=== PATIENT | male | born 1985 | race Hispanic/Latino ===

== ENCOUNTER 2024-03-10 06:29 | Day surgery (SDC) | payer OTHER ==
[2024-03-05 10:56] LABS: BASOPHILS # (AUTO) 0.04 K/uL (0.00-0.20); BASOPHILS % (AUTO) 0.5 % (0.0-5.0); EOSINOPHILS # (AUTO) 0.09 K/uL (0.00-0.70); HEMATOCRIT 41.8 % (42-54); IMMATURE GRANULOCYTE ABSOLUTE 0.02 K/uL (0-1); LYMPHOCYTES # (AUTO) 2.1 K/uL (1.0-4.8); LYMPHOCYTES % (AUTO) 23.2 % (21.0-51.0); MEAN CORPUSCULAR HEMOGLOBIN 29.9 pg (27.0-33.0); MEAN CORPUSCULAR HGB CONC 32.3 g/dL (32.0-36.0); MEAN CORPUSCULAR VOLUME 92.7 fL (79-99); MONOCYTES # (AUTO) 0.5 K/uL (0.1-1.0); MONOCYTES % (AUTO) 5.1 % (3.0-13.0); NEUTROPHILS # (AUTO) 6.2 K/uL (1.8-7.7); PLATELET COUNT (AUTO) 195 K/uL (130-400); RED BLOOD CELL COUNT(AUTO) 4.51 MIL/uL (4.50-6.20); RED CELL DISTRIBUTION WIDTH 13.4 % (11.0-15.5); WHITE BLOOD COUNT (AUTO) 8.9 K/uL (4.8-10.8)
[2024-03-05 10:58] VITALS: BP 179/84; PULSE 78; RESP 18
[2024-03-05 10:58] LABS: CREATININE 0.6 mg/dL (0.5-1.3); POTASSIUM 3.8 mmol/L (3.5-5.1)
[~2024-03-10] VITALS: Ht 168.9 cm; Wt 155.0 kg
[2024-03-10] VITALS (17 sets, daily range): BP systolic 111–145; BP diastolic 54–86; PULSE 62–79; RESP 15–19
[~2024-03-10 06:29] MED LIST: ERGO500093 PO; HYDR12.54 PO; LISI40TA9 PO; METF-444 PO; MVIT PO
[2024-03-10] MEDS ORDERED: BUPIVACAINE/PF 0.25% 30ML VIAL IJ ONE (07:28)
[2024-03-10] MEDS: CEFAZOLIN SODIUM 2 GM VIAL IVPB ONE ×2 (07:30→08:30)
[2024-03-10] MEDS: METRONIDAZOLE 500MG/100ML BAG 200 ML ONE (07:40)
[2024-03-10] MEDS: CEFAZOLIN SODIUM 2 GM VIAL ONE (07:40)
[2024-03-10] MEDS: 0.9%NACL 1000ML 1,000 ML IV ONE (07:41)
[2024-03-10] MEDS ORDERED: LIDOCAINE PF 100MG/5ML (2%) SYRINGE 5ML ONE (08:13)
[2024-03-10] MEDS ORDERED: SUCCINYLCHOLINE CHLORIDE 20 MG/ML 10 ML VIAL ONE (08:13)
[2024-03-10] MEDS ORDERED: ROCURONIUM BROMIDE 10MG/1ML 5ML VL ONE ×2 (08:14→09:03)
[2024-03-10] MEDS ORDERED: MIDAZOLAM HCL 1 MG/ML 2ML VIAL ONE (08:14)
[2024-03-10] MEDS ORDERED: PROPOFOL 10 MG/ML 20ML VIAL IV ONE ×2 (08:14→09:49)
[2024-03-10] MEDS ORDERED: FENTANYL CITRATE PF 50 MCG/1 ML 2ML VIAL ONE (08:14)
[2024-03-10] MEDS ORDERED: LIDOCAINE 1%-EPI 1:100,000 20 ML VIAL ONE (08:37)
[2024-03-10] MEDS ORDERED: GLYCOPYRROLATE 0.2 MG/ML 5 ML VIAL ONE (10:14)
[2024-03-10] MEDS ORDERED: NEOSTIGMINE METHYLSULFATE 1MG/ML IV ONE (10:22)
[2024-03-10] MEDS: MEPERIDINE-PF 25 MG/ML SYG ONE ×2 (10:51→11:01)
[2024-03-10] MEDS ORDERED: IOHEXOL-350 50ML VIAL IV ONE (11:40)
[2024-03-10] MEDS ORDERED: CEFAZOLIN SODIUM 1 GM VIAL ONE (17:59)
== END 2024-03-10 12:20 | disposition home or self-care (01) ==
LOC: DAH 06:29
PROVIDERS: ATTEND Surgery
DX: K80.12 Calculus of gallbladder with acute and chronic cholecystitis without obstruction (principal); I10 Essential (primary) hypertension; E78.5 Hyperlipidemia, unspecified; E11.9 Type 2 diabetes mellitus without complications; K43.9 Ventral hernia without obstruction or gangrene; R10.13 Epigastric pain; R93.2 Abnormal findings on diagnostic imaging of liver and biliary tract; F17.210 Nicotine dependence, cigarettes, uncomplicated; E66.01 Morbid (severe) obesity due to excess calories; Z68.43 Body mass index [BMI] 50.0-59.9, adult; Z82.49 Family history of ischemic heart disease and other diseases of the circulatory system; Z83.3 Family history of diabetes mellitus; Z79.84 Long term (current) use of oral hypoglycemic drugs; Z79.899 Other long term (current) drug therapy
CPT/HCPCS: 80048; 85025; 86850 ×2; 86900 ×2; 86901 ×2; 36415 ×2; 93005; 47563; 82948 ×2; 88304; 48400; A6260; A4600; A4663; J7030 ×2; A4215 ×2; C1758; J3010; J0690 ×3; J0330; J0665; J3490 ×4; J2001; J2250; J2704 ×2; J2710; J2175 ×2; Q9967; C1769 ×3; G0168; A4649 ×2; A4930; A4223; A4222; A4221

== ENCOUNTER 2024-05-27 06:22 | Day surgery (SDC) | payer OTHER ==
[~2024-05-27] VITALS: Ht 167.6 cm; Wt 145.1 kg
[2024-05-27] VITALS (10 sets, daily range): BP systolic 111–127; BP diastolic 58–79; PULSE 57–69; RESP 15–18
[~2024-05-27 06:22] MED LIST changes: -ERGO500093 PO; -MVIT PO; +OZEMPIC SQ
[2024-05-27] MEDS: 0.9%NACL 1000ML 1,000 ML IV ONE (07:05)
[2024-05-27] MEDS ORDERED: PROPOFOL 10 MG/ML 20ML VIAL IV ONE ×2 (08:45)
== END 2024-05-27 10:07 | disposition home or self-care (01) ==
LOC: DAH 06:22 → ENDO 06:22
PROVIDERS: ATTEND Internal Medicine Gastroenterology
DX: R14.0 Abdominal distension (gaseous) (principal); K29.70 Gastritis, unspecified, without bleeding; B96.81 Helicobacter pylori [H. pylori] as the cause of diseases classified elsewhere; K22.89 Other specified disease of esophagus; K43.9 Ventral hernia without obstruction or gangrene; K31.89 Other diseases of stomach and duodenum; K80.20 Calculus of gallbladder without cholecystitis without obstruction; I10 Essential (primary) hypertension; E11.9 Type 2 diabetes mellitus without complications; E66.01 Morbid (severe) obesity due to excess calories; Z79.84 Long term (current) use of oral hypoglycemic drugs; Z79.899 Other long term (current) drug therapy; Z68.43 Body mass index [BMI] 50.0-59.9, adult
CPT/HCPCS: 43239; 82948 ×2; J7030 ×2; J2704 ×2; A4620; A4215; A4223; A4657; A4222; A4221; A4663; A4606; J3490